=== PATIENT | male | born 1970 | race Caucasian/White ===

== ENCOUNTER 2019-12-09 09:28 | Outpatient (REF) | payer BC, SELFPAY | END 2019-12-09 09:29 | disposition home or self-care (01) | LOC: HO.MDS 09:28 | PROVIDERS: PCP Internal Medicine; Visit Provider Internal Medicine | DX: K50.90 Crohn's disease, unspecified, without complications (principal) | CPT/HCPCS: 96413; 96415; J1745 ==

== ENCOUNTER 2020-01-17 08:17 | Day surgery (SDC) | payer BC, SELFPAY ==
[2020-01-11 15:29] VITALS: BMI 25.9
--- NOTE | 2020-01-14 09:43 | P.CONAN_ITS ---
Documented by User: Rhina Chinchilla 01/14/20 09:44 HPI - Anesthesia Eval Consult details Narrative: 49yo M for Colonoscopy [facility] Past Medical History Medical History (Updated 01/17/20 @ 09:43 by Diana Lima) GERD (gastroesophageal reflux disease) History of anxiety Hx of Crohn's disease Surgical History Surgical History (Updated 01/11/20 @ 15:39 by Sparkle Santamaria) H/O colonoscopy History of esophagogastroduodenoscopy (EGD) Social History Social History (Updated 01/11/20 @ 15:40 by Sparkle Santamaria) Alcohol intake: never Smoking Status: Never smoker Use of substances other than those prescribed or required for medical reasons: Yes Substance Use Type: Opiates Substance Use Type Other:: past hx opiate abuse-on suboxone in past Advance Directives Information Provided: No Meds Allergies Allergy/AdvReac Type Severity Reaction Status Date / Time No Known Allergies Allergy Mild NOT Verified 01/11/20 15:37 [No Known Allergies*] APPLICABLE Home Medications Medication Instructions Recorded Confirmed Type omeprazole 20 mg PO DAILY 01/11/20 01/11/20 History Exam Exam Date and Time: January 14, 2020 0943 Height,Weight and Vital Signs: Height 5 ft 9.5 in Weight 80.739 kg Assessment and Plan Assessment Anesthesia Assessment: Chart Reviewed Documented by User: Diana Lima 01/17/20 09:44 [facility] Past Medical History Medical History (Updated 01/17/20 @ 09:43 by Diana Lima) GERD (gastroesophageal reflux disease) History of anxiety Hx of Crohn's disease Family History Family history of problems with anesthesia: No Surgical History Surgical History (Updated 01/11/20 @ 15:39 by Sparkle Santamaria) H/O colonoscopy History of esophagogastroduodenoscopy (EGD) History of Problems with Anesthesia: No Social History Social History (Updated 01/11/20 @ 15:40 by Sparkle Santamaria) Alcohol intake: never Smoking Status: Never smoker Use of substances other than those prescribed or required for medical reasons: Yes Substance Use Type: Opiates Substance Use Type Other:: past hx opiate abuse-on suboxone in past Advance Directives Information Provided: No Meds Allergies Allergy/AdvReac Type Severity Reaction Status Date / Time No Known Allergies Allergy Mild NOT Verified 01/11/20 15:37 [No Known Allergies*] APPLICABLE Home Medications Medication Instructions Recorded Confirmed Type omeprazole 20 mg PO DAILY 01/11/20 01/11/20 History Exam Height,Weight and Vital Signs: Vital Signs Temp Pulse Resp BP Pulse Ox 01/17/20 09:11 97.7 F 90 18 155/90 H 99 Airway Mallampati Class: II TM Dist: >3cm Neck ROM: Full Loose/Missing/Broken Teeth: Yes (Cracked tooth back) Heart: RRR Lungs: CTAB Assessment and Plan Assessment Anesthesia Assessment: Anesthesia Plan Discussed and Chart Reviewed Final Anesthetic Review NPO: Yes ASA Class: II Final Preanesthetic Review: No Changes in Pt Med Stat, Meds/Allgs Chart Reviewed and Consent Obtained/Reviewed Patient Risk: Low Anesthetic Plan Anesthetic Plan: MAC: Disposition: Standard PACU
[2020-01-17 09:11] VITALS: BP 155/90; PULSE 90; RESP 18; TEMP 36.5; O2SAT 99
[2020-01-17] MEDS: Lactated Ringers 1,000 ML 100 ML IVCONT (09:18)
[2020-01-17 10:52] VITALS: BP 140/85; PULSE 95; RESP 16; TEMP 36.3; O2SAT 97
--- NOTE | 2020-01-17 10:53 | PM.OP ---
Brief Operative Note Date of Service: 01/17/20 Pre-op diagnosis: Crohn's colitis Post-op diagnosis: other (Same, R/O Dysplasia. No active colitis) Procedure: Colonoscopy to cecum and TI with biopsies Surgeon: Faustino Adamson Anesthesia: MAC Estimated blood loss (mL): 5.0 Pathology: other (A. Ascending colon B. Transverse colon C. Descending colon D. Sigmoid colon E. Rectum) Condition: stable Disposition: PACU
[2020-01-17 11:07] VITALS: BP 141/79; PULSE 79; RESP 16; TEMP 36.3; O2SAT 99
--- NOTE | 2020-01-17 11:12 | OP_ITS ---
SURGEON: Faustino Adamson MD INDICATIONS: The patient presents for evaluation of long-standing Crohn's colitis and family history of GI malignancy. Full consent has been obtained from him for this, including risks of bleeding and perforation. PREOPERATIVE DIAGNOSIS: POSTOPERATIVE DIAGNOSIS: PROCEDURE PERFORMED: Colonoscopy to the cecum and terminal ileum with multiple biopsies. ESTIMATED BLOOD LOSS: COMPLICATIONS: ANESTHESIA: Monitored anesthesia care. ASSISTANTS: SPECIMENS: PREOPERATIVE DIAGNOSES: Colorectal cancer screening, Crohn's colitis, family history of GI malignancy. POSTOPERATIVE DIAGNOSES: Colorectal cancer screening, Crohn's colitis, family history of GI malignancy, rule out dysplasia. DESCRIPTION OF PROCEDURE: The patient was placed in the left lateral decubitus position. The digital rectal exam revealed no abnormalities. There was no perianal disease. The Olympus video pediatric colonoscope was entered into the rectum and advanced easily to the cecum. Once in the cecum, I did identify normal-appearing cecal pouch with appendiceal orifice and a normal appearing ileocecal valve. Portions of the distal terminal ileum were visualized and appeared normal. The scope was withdrawn back in the colon. The entire cecum and ileocecal valve appeared normal. The scope was slowly withdrawn assessing all mucosal surfaces carefully. Preparation was excellent. I did not visualize any sign of active colitis, polyps, nor angiodysplasia. I did not visualize any real scarring of the colon either. I did obtain multiple random biopsies in the ascending colon, transverse colon, descending colon, sigmoid colon, and rectum. In the rectum, scope was retroflexed visualizing minimal internal hemorrhoids, but no other pathology. The rectal mucosa appeared normal. The scope was straightened out and withdrawn from the patient. He tolerated the procedure well and was returned to the recovery area in stable condition. IMPRESSION: History of Crohn's colitis, rule out dysplasia. PLAN: The results of the biopsies will be checked. Assuming there is no dysplasia, I would recommend a repeat colonoscopy in 3 years for further screening purposes. He was advised to see me in 6 months for followup. He will otherwise continue his current regimen of the Remicade infusions every 8 weeks. He will call me sooner on a p.r.n. basis. He was advised not to use any aspirin or NSAIDs for at least a week, but to try to avoid those long-term as well in regard to the underlying inflammatory bowel disease. MD MASSIMO Tracy/VAUGHN / [id number]
--- NOTE | 2020-01-17 12:32 | HO.POSTANES ---
Post Anesthesia Evaluation Post Anesthesia Evaluation Vital Signs: Vital Signs Temp Pulse Resp BP Pulse Ox 01/17/20 11:07 97.3 F 79 16 141/79 H 99 01/17/20 10:52 97.3 F 95 16 140/85 H 97 01/17/20 09:11 97.7 F 90 18 155/90 H 99 Anesthesia: Monitored Mental Status: Awake Pain Control: Satisfactory Nausea/Vomiting: None Hydration: Adequate Anesthesia-Related Issues: No Anes. Related Issues
== END 2020-01-17 11:35 | disposition home or self-care (01) ==
PROVIDERS: PCP Internal Medicine; Visit Provider Internal Medicine
PROC: 0DJD8ZZ Inspection of Lower Intestinal Tract, Via Natural or Artificial Opening Endoscopic (ICD-10-PCS; CPT 45378; principal; 2020-01-17 09:30)
DX: Z12.11 Encounter for screening for malignant neoplasm of colon (principal); K64.8 Other hemorrhoids; Z87.19 Personal history of other diseases of the digestive system; Z80.0 Family history of malignant neoplasm of digestive organs
CPT/HCPCS: 45380; 88305

== ENCOUNTER 2020-02-23 07:49 | Outpatient (REF) | payer OTHER, SELFPAY | END 2020-02-23 07:50 | disposition home or self-care (01) | LOC: HO.MDS 07:49 | PROVIDERS: PCP Internal Medicine; Visit Provider Internal Medicine | DX: K50.80 Crohn's disease of both small and large intestine without complications (principal) | CPT/HCPCS: 96413; 96415; J1745 ==

== ENCOUNTER 2023-02-07 10:04 | Day surgery (SDC) | payer OTHER, SELFPAY ==
[2023-02-05 12:15] VITALS: BMI 27.9
[2023-02-07 10:14] VITALS: BMI 27.6
[2023-02-07 10:22] VITALS: BP 141/71; PULSE 74; RESP 20; TEMP 36.8; O2SAT 98
[2023-02-07] MEDS: Lactated Ringers 1,000 ML 50 ML IVCONT (10:36)
--- NOTE | 2023-02-07 10:57 | HO.ANESPROP2 ---
HPI - Anesthesia Eval Consult details Narrative: for colonoscopy [facility] Active Problems Active Problems: All Active Problems (Updated 02/05/23 @ 12:20 by Sparkle Santamaria RN) GERD (gastroesophageal reflux disease) (Acute) Past Medical History Medical History (Updated 02/05/23 @ 12:20 by Sparkle Santamaria RN) HTN (hypertension) GERD (gastroesophageal reflux disease) Hx of Crohn's disease History of anxiety Narrative: Former opiate user, clean for many years. Now on Suboxone, altho hasn't taken it in two days. Family History Family history of problems with anesthesia: No Surgical History Surgical History (Updated 02/05/23 @ 12:13 by Sparkle Santamaria RN) History of esophagogastroduodenoscopy (EGD) H/O colonoscopy History of Problems with Anesthesia: No Social History Social History (Updated 01/11/20 @ 15:40 by Sparkle Santamaria RN) Alcohol intake: never Patient Tobacco Use Status: Never used Tobacco Substance Use Type: Opiates Are you DNR?: No Advance Directives: No Advance Directives Information Provided: Yes Nutrition Risks: No Nutritional Risk Meds Allergies Allergy/AdvReac Type Severity Reaction Status Date / Time No Known Allergies Allergy Mild NOT Verified 01/11/20 15:37 [No Known Allergies*] APPLICABLE Active Medications: Current Medications Lactated Ringer's (Lr) 1,000 mls @ 50 mls/hr IVCONT .Q20H JANES Last Admin: 02/07/23 10:36 Dose: 50 mls/hr Sodium Biphosphate/Sodium Phosphate (Sodium Phosphate,[place]-Dibasic 133 Ml Enema) 133 ml [place] ONCE PRN PRN Reason: Poor Colonoscopy Prep Results Home Medications Medication Instructions Recorded Confirmed Last Taken Type buprenorphine 8 mg-naloxone 2 mg 1 film buccal Q24H 01/17/20 02/05/23 02/05/23 History sublingual film (Suboxone) infliximab 100 mg intravenous 100 mg IV Q8W 01/17/20 02/05/23 11/17/22 History solution (Remicade) lorazepam 1 mg tablet 1 mg PO Q8H PRN Anxiety 01/17/20 02/05/23 01/29/23 History lisinopril 20 mg tablet 20 mg PO DAILY 02/05/23 02/05/23 02/07/23 History Exam Height,Weight and Vital Signs: Height 5 ft 9.5 in Weight 85.865 kg Last Vital Signs Temp 98.3 F 02/07/23 10:22 Pulse 74 02/07/23 10:22 Resp 20 02/07/23 10:22 BP 141/71 H 02/07/23 10:22 Pulse Ox 98 02/07/23 10:22 O2 Del Method Room Air 02/07/23 10:22 Airway Mallampati Class: I TM Dist: >3cm Neck ROM: Full Loose/Missing/Broken Teeth: No Heart: ok Lungs: ok Assessment and Plan Final Anesthetic Review Family History of Problems with Anesthesia: No History of Problems with Anesthesia: No NPO: Yes ASA Class: III Final Preanesthetic Review: No Changes in Pt Med Stat, Meds/Allgs Chart Reviewed, Consent Obtained/Reviewed and Anes Risks/Benef Reviewed Patient Risk: Intermediate Procedure Risk: Low Anesthetic Plan Anesthetic Plan: MAC: and Agree w/ Assess. and Plan Disposition: Standard PACU
[2023-02-07 12:43] VITALS: BP 99/57; PULSE 79; RESP 16; TEMP 36.1; O2SAT 99
--- NOTE | 2023-02-07 12:47 | P.BOP_ITS ---
Brief Operative Note Date of Service: 02/07/23 Pre-op diagnosis: Crohn's, Screening Post-op diagnosis: other (Same, R/O Dysplasia, Diverticulosis, Internal hemorrhoids) Procedure: Colonoscopy to the cecum and TI with biopsies Surgeon: Faustino Adamson MD Anesthesia: MAC Was an Geological E Logger used for this Procedure?: No Estimated blood loss (mL): 2.0 Pathology: other (A. Ascending colon B. Transverse colon C. Descending colon D. Sigmoid colon E. Rectum) Condition: stable Disposition: PACU
[2023-02-07 12:58] VITALS: BP 123/54; PULSE 76; RESP 16; TEMP 36.1; O2SAT 100
--- NOTE | 2023-02-07 13:23 | OP_ITS ---
DATE OF SERVICE: 02/07/2023 SURGEON: Faustino Adamson MD INDICATIONS: The patient presents for followup of long-standing Crohn's disease and colorectal cancer screening. Full consent has been obtained from him for this, including risks of bleeding and perforation. PREOPERATIVE DIAGNOSIS: Long-standing Crohn's disease and colorectal cancer screening. POSTOPERATIVE DIAGNOSIS: PROCEDURE PERFORMED: Colonoscopy to cecum and terminal ileum with multiple biopsies. ESTIMATED BLOOD LOSS: COMPLICATIONS: ANESTHESIA: Monitored anesthesia care. ASSISTANTS: SPECIMENS: POSTOPERATIVE DIAGNOSES: Long-standing Crohn's disease and colorectal cancer screening, rule out dysplasia, mild sigmoid diverticulosis, and small internal hemorrhoids. DESCRIPTION OF PROCEDURE: The patient was placed in the left lateral decubitus position. The digital rectal exam revealed no abnormalities, nor any perianal disease. The Olympus video pediatric colonoscope was entered into the rectum and advanced to the cecum easily. Once in the cecum, I did identify normal-appearing cecal pouch with appendiceal orifice and a normal-appearing ileocecal valve. The terminal ileum was cannulated and appeared normal. There was no sign of any Crohn's disease. The scope was withdrawn back in the colon. The entire cecum and ileocecal valve appeared normal. The scope was slowly withdrawn assessing all mucosal surfaces carefully. Preparation was excellent. I did not visualize any sign of colitis, polyps, nor angiodysplasia. There was no significant scarring in the colon. Multiple biopsies were obtained in the ascending colon, transverse colon, descending colon, sigmoid colon, and rectum. There was a mild amount of sigmoid diverticulosis. In the rectum, the scope was retroflexed visualizing some internal hemorrhoids, but no other pathology. The rectal mucosa looked normal, both in the forward viewing and retroflexed positions. The scope was withdrawn from the patient. He tolerated the procedure well and was returned to the recovery area in stable condition. IMPRESSION: 1. Long-standing Crohn's disease, rule out dysplasia. 2. Mild sigmoid diverticulosis. 3. Small internal hemorrhoids. PLAN: The results of the biopsies will be checked. Assuming there is no dysplasia, I would recommend a repeat colonoscopy in 3 years for further screening. He will continue his current regimen of the Inflectra(Remicade biosimilar) infusions every 8 weeks. I will see him in 1 year for a followup visit and repeat a colonoscopy in 3 years. He was advised to call sooner as needed. He was advised to not use any aspirin or NSAIDs for least 1 week, but preferably long-term due to the underlying Crohn's disease. MD MASSIMO Tracy/VAUGHN / [id number] MTDD
== END 2023-02-07 13:27 | disposition home or self-care (01) ==
PROVIDERS: PCP Registered Nurse; Visit Provider Internal Medicine
PROC: 0DJD8ZZ Inspection of Lower Intestinal Tract, Via Natural or Artificial Opening Endoscopic (ICD-10-PCS; CPT 45378; principal; 2023-02-07 11:40)
DX: Z12.11 Encounter for screening for malignant neoplasm of colon (principal); K57.30 Diverticulosis of large intestine without perforation or abscess without bleeding; K64.8 Other hemorrhoids; K21.9 Gastro-esophageal reflux disease without esophagitis; I10 Essential (primary) hypertension; F11.20 Opioid dependence, uncomplicated; Z79.899 Other long term (current) drug therapy
CPT/HCPCS: 45380; 88305; J2704